=== PATIENT | female | born 1980 | race Hispanic/Latino ===

== ENCOUNTER 2018-11-21 12:26 | Emergency (ER) | payer OTHER ==
[2018-11-21 13:05] LABS: Urine Blood TRACE (NEG); Urine Glucose NEGATIVE (NEG); Urine Protein NEGATIVE (NEG); Urine Specific Gravity >1.030 (1.005-1.030); Urine pH 5.5 (5.0-7.0)
[2018-11-21 13:12] LABS: Urine Bacteria 20-50 /HPF (<20); Urine Culture Reflex Order REFLEXED; Urine Mucus 1+ /HPF (NONE SEEN)
[2018-11-21] MEDS ORDERED: KETOROLAC 30 MG/ML INJ ONE (13:38)
[2018-11-21] MEDS ORDERED: ONDANSETRON 4 MG/2 ML VIAL ONE (13:38)
[2018-11-21 13:50] LABS: Absolute Monocytes 0.5 K/uL (0.1-1.3); Absolute Neutrophil 4.7 K/uL (1.8-8.0); Basophils % 0.4 % (0-1.3); Eosinophils % 1.5 % (0-4.4); Hematocrit 39.2 % (36.0-45.0); Lymphocytes % 27.2 % (15.3-44.8); MPV 9.4 fL (7.6-11.3); Monocytes % 6.5 % (3.3-12.3); RBC Red Blood Cell Count 4.38 M/uL (3.86-4.86)
[2018-11-21 13:51] LABS: Albumin 3.4 g/dL (3.4-5.0); Bilirubin Total 0.4 mg/dL (0.2-1.0); Potassium 3.6 mmol/L (3.5-5.1); Protein, Total 7.1 g/dL (6.4-8.2)
--- NOTE | 2018-11-21 13:58 | RAD REPORT ---
EXAM DESCRIPTION: CT - Stone Protocol - 11/21/2018 1:30 pm CLINICAL HISTORY: Right back and flank pain COMPARISON: None. TECHNIQUE: Axial 5 mm thick images were obtained without oral or IV contrast. The [id number] span s the entirety of the system including uppermost abdomen and lung bases. All CT scans are performed using dose optimization technique as appropriate and may include automated exposure control or mA/KV adjustment according to patient size. FINDINGS: There is prominent dilatation of the pelvis and calices of the right kidney with mild to m oderate dilatation of the right ureter. There is a 6 mm calcification at the UVJ with a 4 millimeter calcification in the distal right ureter. Patient has multiple nonobstructing calyx calculi in both k idneys ranging from 2-6 mm in size. No left-sided hydronephrosis. No bladder calculi. No suspicious r enal masses. Isodense masses and pyelonephritis are not excluded on a stone protocol CT scan. No urin kate bladder suspicious finding. No significant adrenal finding. Uterus and ovaries show no suspicious findings. Patient has tubal occlusive device in place. Imaged portions of the liver, spleen and pancreas show no suspicious findings on non-contrast imaging . No gallbladder or biliary tree abnormality identified. No suspicious bowel findings. Appendix is normal No hernia, mass or bulky lymphadenopathy noted. No free air, free fluid or inflammatory stranding. No significant bony abnormality. IMPRESSION: Moderate severity dilatation of the right collecting system secondary to a 6 mm calcific ation at the right UVJ. There is also a 4 mm calcification in the distal right ureter. Patient has multiple bilateral 2-6 mm nonobstructing calyx calculi. Isodense masses and pyelonephritis are not excluded on stone protocol technique.
[2018-11-21] MEDS ORDERED: CEFTRIAXONE/SWI 1gm 1 GM/10 ML SYR ONE (14:32)
--- NOTE | 2018-11-21 14:53 | EDPHYS ---
Physician Documentation [facility] Name: Vianney Hernandez Age: 38 yrs Sex: Female : 1980 Arrival Date: 11/21/2018 Time: 12:26 Bed 20 Private MD: ED Physician Jay Collazo HPI: 11/21 13:18 This 38 yrs old Female presents to ER via Ambulatory with complaints of Flank ps1 Pain. 13:18 patient states that she has flank pain for last 2 days. This morning got exquisitely ps1 worse. Pain localized to right flank and radiating to groin. No fever. Patient started to feel better since coming to the emergency department. New sexual contacts but reportedly was STD tested and has not had new partners since being tested and not attesting to any vaginal discharge or symptoms. No fever. . Historical: - Allergies: 12:49 No Known Allergies; ss - Home Meds: 12:49 gabapentin oral oral [Active]; ss - PMHx: 12:49 RLS; ss - PSHx: 12:49 breast augmentation; ss - Immunization history:: Adult Immunizations up to date. - Social history:: Smoking status: Patient/guardian denies using tobacco. - Ebola Screening: : Patient denies exposure to infectious person Patient denies travel to an Ebola-affected area in the 21 days before illness onset. ROS: 13:18 Constitutional: Negative for fever, chills, and weight loss, Eyes: Negative for injury, ps1 pain, redness, and discharge, ENT: Negative for injury, pain, and discharge, Cardiovascular: Negative for chest pain, palpitations, and edema, Respiratory: Negative for shortness of breath, cough, wheezing, and pleuritic chest pain, Abdomen/GI: Negative for abdominal pain, nausea, vomiting, diarrhea, and constipation, MS/Extremity: Negative for injury and deformity, Skin: Negative for injury, rash, and discoloration, Neuro: Negative for headache, weakness, numbness, tingling, and seizure. 13:18 : Positive for flank pain, urinary frequency. Exam: 13:18 Constitutional: This is a well developed, well nourished patient who is awake, alert, ps1 and in no acute distress. Head/Face: Normocephalic, atraumatic. Eyes: Pupils equal round and reactive to light, extra-ocular motions intact. Lids and lashes normal. Conjunctiva and sclera are non-icteric and not injected. ENT: Nares patent. No nasal discharge, no septal abnormalities noted. Tympanic membranes are normal and external auditory canals are clear. Oropharynx with no redness, swelling, or masses, exudates, or evidence of obstruction, uvula midline. Mucous membranes moist. Chest/axilla: Normal chest wall appearance and motion. Nontender with no deformity. No lesions are appreciated. Cardiovascular: Regular rate and rhythm. No gallops, murmurs, or rubs. Normal PMI, no JVD. No pulse deficits. Respiratory: Lungs have equal breath sounds bilaterally, clear to auscultation and percussion. No rales, rhonchi or wheezes noted. No increased work of breathing, no retractions or nasal flaring. Abdomen/GI: Soft, non-tender, with normal bowel sounds. No distension or tympany. No guarding or rebound. No evidence of tenderness throughout. Skin: Warm, dry with normal turgor. Normal color with no rashes, no lesions, and no evidence of cellulitis. MS/ Extremity: Pulses equal, no cyanosis. Neurovascular intact. Full, normal range of motion. Neuro: Awake and alert, GCS 15, oriented to person, place, time, and situation. Cranial nerves II-XII grossly intact. Sensory grossly intact. Vital Signs: 12:49 BP 117 / 51; Pulse 60; Resp 16; Temp 98; Pulse Ox 100% ; Weight 68.04 kg; Height 5 ft. bp 6 in. (167.64 cm); Pain 5/10; 13:45 BP 102 / 61; Pulse 68; Resp 17; Pulse Ox 99% on R/A; rb1 14:28 BP 95 / 48; Pulse 81; Resp 16; Pulse Ox 100% ; bp 15:12 BP 118 / 55; Pulse 73; Resp 16; Temp 98; Pulse Ox 100% ; bp 12:49 Body Mass Index 24.21 (68.04 kg, 167.64 cm) bp MDM: 13:11 Patient medically screened. ps1 11/21 12:54 Order name: Urine Microscopic Only; Complete Time: 13:16 bp 11/21 12:59 Order name: Urine Dipstick--Ancillary (enter results); Complete Time: 13:11 bd 11/21 12:59 Order name: Urine --Ancillary (enter results); Complete Time: 13:11 bd 11/21 13:12 Order name: CBC with Diff; Complete Time: 14:17 ps1 11/21 13:12 Order name: CMP; Complete Time: 13:53 ps1 11/21 13:15 Order name: Urine Culture EDMS 11/21 12:54 Order name: Urine Test (obtain specimen); Complete Time: 12:58 bp 11/21 12:54 Order name: Urine Dipstick-Ancillary (obtain specimen); Complete Time: 12:58 bp 11/21 13:12 Order name: CT Stone Protocol; Complete Time: 14:17 ps1 Administered Medications: 13:33 Drug: Zofran 4 mg Route: IVP; Site: right antecubital; bp 14:27 Follow up: Response: Nausea is decreased bp 13:34 Drug: TORadol 30 mg Route: IVP; Site: right antecubital; bp 14:27 Follow up: Response: Pain is decreased bp 14:20 Drug: Rocephin - (cefTRIAXone) 1 grams Route: IVPB; Infused Over: 30 mins; Site: right bp antecubital; 14:27 Follow up: IV Status: Completed infusion; IV Intake: 20ml bp Disposition: 11/21/18 14:53 Discharged to Home. Impression: Uretolithiosis (6mm, 4mm, RUVJ) + moderate hydronephrosis, Acute cystitis with hematuria. - Condition is Stable. - Discharge Instructions: Kidney Stones, [id number]. - Prescriptions for ketorolac 10 mg Oral tablet - take 1 tablet by ORAL route every 4-6 hours not to exceed 40mg in 24hrs for up to 5 days total use; 15 tablet. Keflex 500 mg Oral Capsule - take 1 capsule by ORAL route every 6 hours for 10 days; 40 capsule. Zofran 4 mg Oral Tablet - take 1 tablet by ORAL route every 12 hours As needed; 20 tablet. Flomax 0.4 mg Oral Capsule, Sust. Release 24 hr - take 1 capsule by ORAL route once daily 1/2 hour following the same meal each day; 30 capsule. - Work release form, Medication Reconciliation Form, Thank You Letter, Antibiotic Education, Prescription Opioid Use form. - Follow up: Emergency Department; When: As needed; Reason: Fever > 102 F, Worsening of condition. - Problem is new. - Symptoms have improved. Signatures: Dispatcher [employer] EDMS Dunia Teran RN RN ss Dallin Garcia RN RN Jay Marcus MD MD ps1 Corrections: (The following items were deleted from the chart) 15:12 14:53 11/21/2018 14:53 Discharged to Home. Impression: Uretolithiosis (6mm, 4mm, RUVJ) bp + moderate hydronephrosis; Acute cystitis with hematuria. Condition is Stable. Forms are Medication Reconciliation Form, Thank You Letter, Antibiotic Education, Prescription Opioid Use. Follow up: Emergency Department; When: As needed; Reason: Fever > 102 F, Worsening of condition. Problem is new. Symptoms have improved. ps1
--- NOTE | 2018-11-21 14:53 | ER ---
Nurse's Notes [facility] Name: Vianney Hernandez Age: 38 yrs Sex: Female : 1980 Arrival Date: 11/21/2018 Time: 12:26 Bed 20 Private MD: Diagnosis: Uretolithiosis (6mm, 4mm, RUVJ) + moderate hydronephrosis;Acute cystitis with hematuria Presentation: 11/21 12:44 Presenting complaint: Patient states: intermittent R mid back pain that began 5 days ss ago, is getting worse. Also reports that the pain intermittently radiates towards R side of abd. Transition of care: patient was not received from another setting of care. Onset of symptoms was November 17, 2018. Risk Assessment: Do you want to hurt yourself or someone else? Patient reports no desire to harm self or others. Initial Sepsis Screen: Does the patient meet any 2 criteria? No. Patient's initial sepsis screen is negative. Does the patient have a suspected source of infection? No. Patient's initial sepsis screen is negative. Care prior to arrival: None. 12:44 Method Of Arrival: Ambulatory ss 12:44 Acuity: BRIAN 3 ss Triage Assessment: 12:54 General: Appears in no apparent distress. uncomfortable, Behavior is cooperative, bp appropriate for age, anxious. Pain: Complains of pain in RIGHT FLANK. EENT: No deficits noted. Neuro: Level of Consciousness is awake, alert, obeys commands, Oriented to person, place, time, situation, Appropriate for age. Cardiovascular: No deficits noted. Respiratory: Airway is patent Respiratory effort is even, unlabored, Respiratory pattern is regular, symmetrical. GI: No signs and/or symptoms were reported involving the gastrointestinal system. : Reports pain in right flank(s). Derm: No deficits noted. Musculoskeletal: Circulation, motion, and sensation intact. Range of motion: intact in all extremities. Historical: - Allergies: 12:49 No Known Allergies; ss - Home Meds: 12:49 gabapentin oral oral [Active]; ss - PMHx: 12:49 RLS; ss - PSHx: 12:49 breast augmentation; ss - Immunization history:: Adult Immunizations up to date. - Social history:: Smoking status: Patient/guardian denies using tobacco. - Ebola Screening: : Patient denies exposure to infectious person Patient denies travel to an Ebola-affected area in the 21 days before illness onset. Screenin:56 Abuse screen: Denies threats or abuse. Denies injuries from another. Nutritional bp screening: No deficits noted. Tuberculosis screening: No symptoms or risk factors identified. Fall Risk None identified. Assessment: 12:56 General: SEE TRIAGE NOTE. bp 13:21 Reassessment: PT TO CT WITH CORPORATE ACCOUNTANT. bp 13:34 Reassessment: PT RETURNED FROM CT, RESULTS PENDING. bp 14:28 Reassessment: ALL CURRENT ORDERS COMPLETED, DISPO PENDING. bp 15:10 Reassessment: PT D/C HOME AMBULATORY WITH FAMILY, DX WITH URETOLITHIOSIS AND CYSTITIS. bp Vital Signs: 12:49 BP 117 / 51; Pulse 60; Resp 16; Temp 98; Pulse Ox 100% ; Weight 68.04 kg; Height 5 ft. bp 6 in. (167.64 cm); Pain 5/10; 13:45 BP 102 / 61; Pulse 68; Resp 17; Pulse Ox 99% on R/A; rb1 14:28 BP 95 / 48; Pulse 81; Resp 16; Pulse Ox 100% ; bp 15:12 BP 118 / 55; Pulse 73; Resp 16; Temp 98; Pulse Ox 100% ; bp 12:49 Body Mass Index 24.21 (68.04 kg, 167.64 cm) bp ED Course: 12:26 Patient arrived in ED. as 12:38 Dallin Garcia, JAY is Primary Nurse. bp 12:48 Triage completed. ss 12:51 Jay Collazo MD is Attending Physician. ps1 12:54 Arm band placed on. bp 12:56 Patient has correct armband on for positive identification. Placed in gown. Bed in low bp position. Call light in reach. Side rails up X2. 13:21 Inserted saline lock: 22 gauge in right antecubital area, using aseptic technique. bp Blood collected. 13:31 CT Stone Protocol In Process Unspecified. EDMS 15:11 No provider procedures requiring assistance completed. IV discontinued, intact, bp bleeding controlled, No redness/swelling at site. Pressure dressing applied. Administered Medications: 13:33 Drug: Zofran 4 mg Route: IVP; Site: right antecubital; bp 14:27 Follow up: Response: Nausea is decreased bp 13:34 Drug: TORadol 30 mg Route: IVP; Site: right antecubital; bp 14:27 Follow up: Response: Pain is decreased bp 14:20 Drug: Rocephin - (cefTRIAXone) 1 grams Route: IVPB; Infused Over: 30 mins; Site: right bp antecubital; 14:27 Follow up: IV Status: Completed infusion; IV Intake: 20ml bp Intake: 14:27 IV: 20ml; Total: 20ml. bp Outcome: 14:53 Discharge ordered by . ps1 15:11 Discharged to home ambulatory, with family. bp 15:11 Condition: stable 15:11 Discharge instructions given to patient, Instructed on discharge instructions, follow up and referral plans. medication usage, Demonstrated understanding of instructions, follow-up care, medications, Prescriptions given X 4. 15:12 Patient left the ED. bp Signatures: Dispatcher [employer] EDMS Holly Licea Shelby, RN RN ss Magaly Davis RN RN rb1 Dallin Garcia RN RN bp Jay Collazo MD MD ps1 Corrections: (The following items were deleted from the chart) 12:53 12:49 Resp 16bpm; 68.04 kg; Height 5 ft. 6 in.; BMI: 24.2; Pain 5/10; ss bp
== END 2018-11-21 15:12 | disposition home or self-care (01) ==
LOC: ER 12:26
DX: N13.2 Hydronephrosis with renal and ureteral calculous obstruction (principal); N30.01 Acute cystitis with hematuria; Z98.82 Breast implant status
CPT/HCPCS: 36415; 74176; 76377; 80053; 81003; 81015; 81025; 85025; 87086; 87088; J0696; J2405

== ENCOUNTER → 2023-09-09 | Emergency (ER) | payer SELFPAY ==
[~2023-09-09] MED LIST: DIAZEPAM 5 MG TABLET ONE; KETOROLAC 30 MG/ML INJ ONE; MORPHINE 4 MG/ML SYR ONE; NA CHLORIDE 0.9% 1,000 ML ONE; dexAMETHasone 10 MG/ML VIAL ONE
[2023-09-09 09:36] LABS: Absolute Lymphocytes (CBC) 2.1 K/uL (0.7-4.9); Hematocrit 37.2 % (36.0-45.0); Lymphocytes % 31.6 % (15.3-44.8); MCV 84.3 fL (80-100); MPV 8.7 fL (7.6-11.3); Platelets 244 thou/uL (152-406); RBC Red Blood Cell Count 4.41 M/uL (3.86-4.86)
--- NOTE | 2023-09-09 09:55 | RAD REPORT ---
EXAM DESCRIPTION: CTSpine Lumbar Wo Con09/09/2023 9:32 am CLINICAL HISTORY: Back pain COMPARISON: None TECHNIQUE: Computed axial tomography lumbar spine was obtained with coronal and sagittal reconstruct ion. All CT scans are performed using dose optimization technique as appropriate and may include automated exposure control or mA/KV adjustment according to patient size. FINDINGS: No fracture is seen. No dislocation is noted. A small to moderate right posterolateral disc herniation L5-S1 displaces the right S1 nerve root post eriorly Small left renal calculus IMPRESSION: Small to moderate right posterolateral disc herniation L5-S1 Nonemergent MRI lumbar spine could be obtained for further evaluation
[2023-09-09 10:01] LABS: Transitional Epithelial <5 /HPF (None Seen); Urine Bacteria None Seen /HPF (<20); Urine Bilirubin NEGATIVE (Negative); Urine Blood Negative (Negative); Urine Clarity Turbid (Clear); Urine Color Colorless (Yellow); Urine Glucose NEGATIVE (Negative); Urine Mucus Slight /HPF (None Seen); Urine Protein NEGATIVE (Negative); Urine RBC <5 /HPF (None Seen); Urine Urobilinogen Normal (Normal)
[2023-09-09 10:15] LABS: Albumin 3.3 g/dL (3.4-5.0); Bilirubin Total 0.3 mg/dL (0.2-1.0); Potassium 3.9 mEq/L (3.5-5.1); Protein, Total 7.2 g/dL (6.4-8.2)
--- NOTE | 2023-09-09 11:23 | EDPHYS ---
Physician Documentation [facility] Name: Vianney Thomas Age: 43 yrs Sex: Female : 1980 Arrival Date: 09/09/2023 Time: 08:48 Bed 14 Private MD: AVELINO Physician Alex Colin HPI: 09/09 11:11 This 43 yrs old Female presents to ER via Wheelchair with complaints of Back kadie Pain. 11:11 The patient presents with pain that is acute, with no known mechanism of injury. The kadie symptoms are located in the low back. The symptoms are located in the lumbar area, left low back and right low back. Onset: The symptoms/episode began/occurred 7 day(s) ago. The pain does not radiate. Associated signs and symptoms: The patient has no apparent associated signs or symptoms. The problem was sustained when bending over, from twisting. Modifying factors: The patient symptoms are alleviated by remaining still, the patient symptoms are aggravated by any movement, bending, movement. Severity of symptoms: At their worst the symptoms were moderate, in the emergency department the symptoms are unchanged. The patient has experienced similar episodes in the past, several times. Historical: - Allergies: 08:57 No Known Allergies; aa5 - PMHx: 08:57 kidney stone; Herniated disc; aa5 - PSHx: 08:57 Breast implants; Kidney stone; lasik eye sx; eyelid sx; aa5 - Immunization history:: Adult Immunizations unknown. - Social history:: Smoking status: Patient denies any tobacco usage or history of. ROS: 11:13 Constitutional: Negative for fever, chills, and weight loss, Eyes: Negative for injury, kadie pain, redness, and discharge, ENT: Negative for injury, pain, and discharge, Neck: Negative for injury, pain, and swelling, Cardiovascular: Negative for chest pain, palpitations, and edema, Respiratory: Negative for shortness of breath, cough, wheezing, and pleuritic chest pain, Abdomen/GI: Negative for abdominal pain, nausea, vomiting, diarrhea, and constipation, : Negative for injury, bleeding, discharge, and swelling, MS/Extremity: Negative for injury and deformity, Skin: Negative for injury, rash, and discoloration, Neuro: Negative for headache, weakness, numbness, tingling, and seizure, Psych: Negative for depression, anxiety, suicide ideation, homicidal ideation, and hallucinations, Allergy/Immunology: Negative for hives, rash, and allergies, Endocrine: Negative for neck swelling, polydipsia, polyuria, polyphagia, and marked weight changes, Hematologic/Lymphatic: Negative for swollen nodes, abnormal bleeding, and unusual bruising, 11:13 Back: Positive for decreased range of motion, pain at rest, pain with movement, radiated pain, of the lumbar area, left low back and right low back, Exam: 11:13 Constitutional: This is a well developed, well nourished patient who is awake, alert, kadie and in no acute distress. Head/Face: Normocephalic, atraumatic. Eyes: Pupils equal round and reactive to light, extra-ocular motions intact. Lids and lashes normal. Conjunctiva and sclera are non-icteric and not injected. Cornea within normal limits. Periorbital areas with no swelling, redness, or edema. ENT: Nares patent. No nasal discharge, no septal abnormalities noted. Tympanic membranes are normal and external auditory canals are clear. Oropharynx with no redness, swelling, or masses, exudates, or evidence of obstruction, uvula midline. Mucous membranes moist. Neck: Trachea midline, no thyromegaly or masses palpated, and no cervical lymphadenopathy. Supple, full range of motion without nuchal rigidity, or vertebral point tenderness. No Meningismus. Chest/axilla: Normal chest wall appearance and motion. Nontender with no deformity. No lesions are appreciated. Cardiovascular: Regular rate and rhythm with a normal S1 and S2. No gallops, murmurs, or rubs. Normal PMI, no JVD. No pulse deficits. Respiratory: Lungs have equal breath sounds bilaterally, clear to auscultation and percussion. No rales, rhonchi or wheezes noted. No increased work of breathing, no retractions or nasal flaring. Abdomen/GI: Soft, non-tender, with normal bowel sounds. No distension or tympany. No guarding or rebound. No evidence of tenderness throughout. Skin: Warm, dry with normal turgor. Normal color with no rashes, no lesions, and no evidence of cellulitis. MS/ Extremity: Pulses equal, no cyanosis. Neurovascular intact. Full, normal range of motion. Neuro: Awake and alert, GCS 15, oriented to person, place, time, and situation. Cranial nerves II-XII grossly intact. Motor strength 5/5 in all extremities. Sensory grossly intact. Cerebellar exam normal. Normal gait. Psych: Awake, alert, with orientation to person, place and time. Behavior, mood, and affect are within normal limits. 11:13 Back: pain, that is moderate, ROM is painful, decreased, with flexion, with extension, normal spinal alignment noted, CVA tenderness, is absent, vertebral tenderness, is not appreciated, muscle spasm, is appreciated in the left low back, left mid back, right mid back and right low back, Vital Signs: 08:52 BP 133 / 73; Pulse 81; Resp 18 S; Temp 98(TE); Pulse Ox 100% on R/A; Weight 74.84 kg aa5 (R); Height 5 ft. 7 in. (R); Pain 10/10; 10:13 BP 122 / 81; Pulse 74; Resp 18; Pulse Ox 100% on R/A; mb9 11:37 BP 126 / 84; Pulse 78; Resp 18; Pulse Ox 100% on R/A; mb9 08:52 Body Mass Index 25.84 (74.84 kg, 170.18 cm) aa5 08:52 Pain Scale: Adult aa5 MDM: 08:50 Patient medically screened. kadie 11:15 Differential diagnosis: chronic back pain, Fatigue Fracture Ligament Injury kadie Osteoarthritis Osteoporosis Pyelonephritis ruptured disc, sprain, Ureterolithiasis vertebral fracture. Data reviewed: vital signs, nurses notes, lab test result(s), radiologic studies, CT scan. Consideration of Admission/Observation Escalation of care including admission/observation considered. I considered the following discharge prescriptions or medication management in the emergency department Medications were administered in the Emergency Department. See MAR. Independent interpretation of the following test(s) in the Emergency Department CT Scan: My interpretation is CT LUMBAR. Test considered but Not performed: MRI: NO MRI. Historians other than the Patient: PATIENT WELL INFORMED. Care significantly affected by the following chronic conditions: KIDNEY STONE, HERNIATED DISC. Counseling: I had a detailed discussion with the patient and/or guardian regarding the historical points, exam findings, and any diagnostic results supporting the discharge/admit diagnosis, lab results, radiology results, the need for outpatient follow up, for definitive care, a neurologist, a neurosurgeon. 09/09 08:58 Order name: CBC with Diff; Complete Time: 11:07 [facility] 09/09 08:58 Order name: Comprehensive Metabolic Panel; Complete Time: 11:07 [facility] 09/09 08:58 Order name: Urinalysis w/ reflexes; Complete Time: 11:07 [facility] 09/09 08:58 Order name: CT Lumbar Spine Wo Con; Complete Time: 11:07 [facility] 09/09 08:59 Order name: IV Saline Lock; Complete Time: 09:18 mb9 Administered Medications: 09:12 Drug: NS 0.9% IV 1000 ml IV at 1 bolus Per protocol; 1000 mL bolus Route: IV; Rate: 1 mb9 bolus; Site: right antecubital; 11:38 Follow up: Response: No adverse reaction; IV Status: Completed infusion mb9 09:12 Drug: Ketorolac IVP 30 mg IVP once Route: IVP; Site: right antecubital; mb9 10:14 Follow up: Response: No adverse reaction mb9 09:15 Drug: morphine IVP or IV 4 mg IVP once over 4 mins Route: IVP; Infused Over: 4 mins; mb9 Site: right antecubital; 10:13 Follow up: Response: No adverse reaction mb9 09:19 Drug: Decadron - Dexamethasone IVP 10 mg IVP once Route: IVP; Site: right antecubital; mb9 10:14 Follow up: Response: No adverse reaction mb9 09:19 Drug: Diazepam PO 10 mg PO once Route: PO; mb9 10:13 Follow up: Response: No adverse reaction mb9 Disposition Summary: 09/09/23 11:22 Discharge Ordered Notes: Location: Home kadie Problem: new kadie Symptoms: have improved kadie Condition: Stable kadie Diagnosis - Sciatica kadie - Low back pain kadie - Intervertebral disc disorders with radiculopathy, lumbosacral region - L5-S1 kadie Followup: kadie - With: Private Physician - When: 2 - 3 days - Reason: Recheck today's complaints, Continuance of care, Re-evaluation by your physician Followup: kadie - With: Maurice Ramirez MD - When: 2 - 3 days - Reason: Recheck today's complaints, Re-evaluation by your physician Followup: kadie - With: Demetrius Marie MD - When: 2 - 3 days - Reason: Recheck today's complaints, Re-evaluation by your physician Discharge Instructions: - Discharge Summary Sheet kadie - Acute Back Pain, Adult kadie - Herniated Disk kadie - Lumbosacral Radiculopathy kadie - Musculoskeletal Pain kadie - Back Injury Prevention, [id number] kadie - Degenerative Disk Disease kadie Forms: - Medication Reconciliation Form [facility] - Thank You Letter kadie - Antibiotic Education kadie - Prescription Opioid Use kadie - Patient Portal Instructions [facility] - Leadership Thank You Letter kadie Prescriptions: - acetaminophen-codeine 300-30 mg Oral tablet - take 2 tablet ORAL route every 6 hours; 20 tablet; Refills: 0, Product [facility] Selection Permitted - dexamethasone 2 mg Oral tablet - take 1 tablet ORAL route every 12 hours; 12 tablet; Refills: 0, Product [facility] Selection Permitted - Diclofenac Sodium 75 mg Oral Tablet Sustained Release - take 1 tablet ORAL route 2 times per day; 30 tablet; Refills: 0, Product [facility] Selection Permitted - Cyclobenzaprine 5 mg Oral tablet - take 1 tablet ORAL route 3 times per day As needed; 21 tablet; Refills: 0, [facility] Product Selection Permitted Signatures: Dispatcher [employer] Alex Hsu MD MD cha Calderon, Audri RN RN aa5 Carolyn Reynaga RN RN mb9 Corrections: (The following items were deleted from the chart) 08:59 08:57 PMHx: breast implant; aaDanna aa5
--- NOTE | 2023-09-09 11:23 | ER ---
Nurse's Notes [facility] Name: Vianney Thomas Age: 43 yrs Sex: Female : 1980 Arrival Date: 09/09/2023 Time: 08:48 Bed 14 Private MD: Diagnosis: Sciatica;Low back pain;Intervertebral disc disorders with radiculopathy, lumbosacral [id number] Presentation: 09/09 08:52 Chief complaint: Patient states: lower back pain x 1 week ago and getting worse. aa5 08:52 Coronavirus screen: At this time, the client does not indicate any symptoms associated aa5 with coronavirus-19. Ebola Screen: Patient denies travel to an Ebola-affected area in the 21 days before illness onset. Initial Sepsis Screen: Does the patient meet any 2 criteria? No. Patient's initial sepsis screen is negative. Does the patient have a suspected source of infection? No. Patient's initial sepsis screen is negative. Risk Assessment: Do you want to hurt yourself or someone else? Patient reports no desire to harm self or others. Onset of symptoms was August 2023. 08:52 Acuity: BRIAN 3 aa5 08:52 Method Of Arrival: Wheelchair aa5 Historical: - Allergies: 08:57 No Known Allergies; aa5 - PMHx: 08:57 kidney stone; Herniated disc; aa5 - PSHx: 08:57 Breast implants; Kidney stone; lasik eye sx; eyelid sx; aa5 - Immunization history:: Adult Immunizations unknown. - Social history:: Smoking status: Patient denies any tobacco usage or history of. Screenin:58 [facility] ED Fall Risk Assessment (Adult) History of falling in the last 3 months, mb9 including since admission No falls in past 3 months (0 pts) Confusion or Disorientation No (0 pts) Intoxicated or Sedated No (0 pts) Impaired Gait No (0 pts) Mobility Assist Device Used No (0 pt) Altered Elimination No (0 pt) Score/Fall Risk Level 0 - 2 = Low Risk Oriented to surroundings, Maintained a safe environment, Educated pt \T\ family on fall prevention, incl call for assistance when getting out of bed. Abuse screen: Denies threats or abuse. Nutritional screening: No deficits noted. Tuberculosis screening: No symptoms or risk factors identified. Assessment: 09:19 General: Appears uncomfortable, Behavior is calm, cooperative. Pain: Complains of pain mb9 in back Pain does not radiate. Pain currently is 10 out of 10 on a pain scale. Quality of pain is described as throbbing, Pain began 2-3 days ago. Is continuous. Neuro: Frias Agitation-Sedation Scale (RASS): 0 - Alert and Calm Level of Consciousness is awake, alert, obeys commands, Oriented to person, place, time, situation, Appropriate for age. Cardiovascular: Patient's skin is warm and dry. Respiratory: Airway is patent Respiratory effort is even, unlabored, Respiratory pattern is regular, symmetrical. GI: No signs and/or symptoms were reported involving the gastrointestinal system. : Denies burning with urination, pain. EENT: No signs and/or symptoms were reported regarding the EENT system. Derm: Skin is pink, warm \T\ dry. Musculoskeletal: Range of motion: intact in all extremities. 10:56 Reassessment: Patient and/or family updated on plan of care and expected duration. Pain mb9 level reassessed. Patient is alert, oriented x 3, equal unlabored respirations, skin warm/dry/pink. Patient states feeling better. Patient states symptoms have improved. 11:37 Reassessment: No changes from previously documented assessment. Patient and/or family mb9 updated on plan of care and expected duration. Pain level reassessed. Patient is alert, oriented x 3, equal unlabored respirations, skin warm/dry/pink. Vital Signs: 08:52 BP 133 / 73; Pulse 81; Resp 18 S; Temp 98(TE); Pulse Ox 100% on R/A; Weight 74.84 kg aa5 (R); Height 5 ft. 7 in. (R); Pain 10/10; 10:13 BP 122 / 81; Pulse 74; Resp 18; Pulse Ox 100% on R/A; mb9 11:37 BP 126 / 84; Pulse 78; Resp 18; Pulse Ox 100% on R/A; mb9 08:52 Body Mass Index 25.84 (74.84 kg, 170.18 cm) aa5 08:52 Pain Scale: Adult aa5 ED Course: 08:49 Patient arrived in ED. mg5 08:50 Alex Colin MD is Attending Physician. kadie 08:52 Arm band placed on. aa5 08:58 Carolyn Reynaga, RN is Primary Nurse. mb9 08:58 Placed in gown. Bed in low position. Call light in reach. Side rails up X 1. Client mb9 placed on continuous cardiac and pulse oximetry monitoring. NIBP monitoring applied. 09:00 Triage completed. aa5 09:10 Inserted saline lock: 20 gauge in right antecubital area, using aseptic technique. mb9 09:18 Comprehensive Metabolic Panel Sent. mb9 09:18 CBC with Diff Sent. mb9 09:20 No provider procedures requiring assistance completed. mb9 09:34 CT Lumbar Spine Wo Con In Process Unspecified. EDMS 11:21 Maurice Ramirez MD is Referral Physician. kadie 11:21 Demetrius Marie MD is Referral Physician. kadie 11:38 IV discontinued, intact, bleeding controlled, No redness/swelling at site. Pressure mb9 dressing applied. Administered Medications: 09:12 Drug: NS 0.9% IV 1000 ml IV at 1 bolus Per protocol; 1000 mL bolus Route: IV; Rate: 1 mb9 bolus; Site: right antecubital; 11:38 Follow up: Response: No adverse reaction; IV Status: Completed infusion mb9 09:12 Drug: Ketorolac IVP 30 mg IVP once Route: IVP; Site: right antecubital; mb9 10:14 Follow up: Response: No adverse reaction mb9 09:15 Drug: morphine IVP or IV 4 mg IVP once over 4 mins Route: IVP; Infused Over: 4 mins; mb9 Site: right antecubital; 10:13 Follow up: Response: No adverse reaction mb9 09:19 Drug: Decadron - Dexamethasone IVP 10 mg IVP once Route: IVP; Site: right antecubital; mb9 10:14 Follow up: Response: No adverse reaction mb9 09:19 Drug: Diazepam PO 10 mg PO once Route: PO; mb9 10:13 Follow up: Response: No adverse reaction mb9 Medication: 08:58 VIS not applicable for this client. mb9 Outcome: 11:22 Discharge ordered by . kadie 11:38 Discharged to home ambulatory, mb9 11:38 Condition: stable 11:38 Discharge instructions given to patient, Instructed on discharge instructions, follow up and referral plans. Demonstrated understanding of instructions, follow-up care, medications, Prescriptions given X 4, 11:38 Patient left the ED. mb9 Signatures: Dispatcher [employer] EDAlex Casas MD MD cha Calderon, Audri RN RN aa5 Carolyn Reynaga RN RN mb9 Teresa Allen mg5 Corrections: (The following items were deleted from the chart) 08:59 08:57 PMHx: breast implant; jessica aa5
[2023-09-09 11:54] VITALS: BP 126/84; TEMP 98; O2SAT 100
== END ==
LOC: ER 08:48
DX: M54.30 Sciatica, unspecified side (principal); M51.17 Intervertebral disc disorders with radiculopathy, lumbosacral region
CPT/HCPCS: 36415; 72131; 80053; 81001; 85025; 96361; 96374; 96375; 99284; J1100; J7030